=== PATIENT | male | born 1965 | race Hispanic/Latino ===

== ENCOUNTER 2020-02-23 06:31 | Emergency (ER) | payer SELFPAY ==
[~2020-02-23] VITALS: Ht 177.8 cm; Wt 113.4 kg
[~2020-02-23 06:31] MED LIST: LISINOPRIL40 MG PO; MELOXICAM15 MG PO; ULTRAM 50MG50 MG PO
--- NOTE | 2020-02-23 07:16 | Emergency Department Note ---
History of Present Illnes History of Present Illness Chief Complaint: COVID PUI History of Present Illness This is a 54 year old male . Historian: Patient, Family Member Arrival Mode: Car Cardiovascular Physician Assistant Required: Yes Onset (how long ago): day(s) Duration (how long): day(s) Timing of current episode: intermittent Progression: unchanged Chronicity: new Associated symptoms: Reports fever/chills, Reports malaise Past Medical/Family History Physician Review I have reviewed the patient's past medical and family history. Any updates have been documented here. Past Medical History Recent Fever: Yes Clinical Suspicion of Infectio: Yes New/Unexplained Change in Ment: No Past Medical History: Hypertension Other Surgery: RIGHT SHOULDER Social History Smoking Cessation: Former smoker Counseling Performed: No Alcohol Use: None Any Illegal Drug Use: No Physically hurt or threatened: No Other Any Pre-Existing Lines (PICC,: No Review of Systems Review of Systems Constitutional: Reports as per HPI, Reports fever EENTM: Reports no symptoms Cardiovascular: Reports no symptoms Respiratory: Reports as per HPI, Reports cough Gastrointestinal: Reports no symptoms Genitourinary: Reports no symptoms Musculoskeletal: Reports no symptoms Integumentary: Reports no symptoms Neurological: Reports no symptoms Psychological: Reports no symptoms Endocrine: Reports no symptoms Hematological/Lymphatic: Reports no symptoms Physical Exam Related Data Allergies: Coded Allergies: No Known Allergies (Unverified , 09/17/14) Triage Vital Signs Vital Signs Date Time Temp Pulse Resp B/P (MAP) Pulse Ox O2 Delivery O2 Flow Rate FiO2 02/23/20 06:49 99.8 90 18 130/79 98 Room Air Vital signs reviewed: Yes Physical Exam CONSTITUTIONAL Constitutional: Present well-developed, Present well-nourished HENT HENT: Present normocephalic, Present atraumatic, Present oropharynx clear/moist, Present nose normal HENT L/R: Present left ext ear normal, Present right ext ear normal EYES Eyes: Reports PERRL, Reports conjunctivae normal NECK Neck: Present ROM normal PULMONARY Pulmonary: Present effort normal, Present breath sounds normal CARDIOVASCULAR Cardiovascular: Present regular rhythm, Present heart sounds normal, Present capillary refill normal, Present normal rate GASTROINTESTINAL Abdominal: Present soft, Present nontender, Present bowel sounds normal GENITOURINARY Genitourinary: Present exam deferred SKIN Skin: Present warm, Present dry MUSCULOSKELETAL Musculoskeletal: Present ROM normal NEUROLOGICAL Neurological: Present alert, Present oriented x 3, Present no gross motor or sensory deficits PSYCHOLOGICAL Psychological: Present mood/affect normal, Present judgement normal Assessment & Plan Medical Decision Making MDM 43-year-old well-appearing male arrives to the ED with complaints of cough fever loss of taste and smell. Patient is clinically presenting with signs and sympto ms consistent with Covid 19. Patient informed he is positive until proven otherwise. Patient's oxygen saturation remained 99% even on exertion, no evidence of tachypnea or dyspnea noted in the ED. Spoke present length about the importance of sleeping on his stomach and rotating from side to side. Z-Uriel and Decadron given, signs and symptoms for return discussed. In the light of the Covid pandemic, disaster medicine care was given- patient understands why he was not tested for Covid 19 in the ED, no indications for a chest x-ray at this time given normal oxygen saturation and respiratory status. Pt understands he is at high risk of morbidity and mortality given his age and co-morbidiites. Pt understands he is welcome to return to the ED at anytime for worsening symptoms. Assessment & Plan Final Impression: (1) COVID-19 Depart Disposition: HOME, SELF-CARE Last Vital Signs Date Time Temp Pulse Resp B/P (MAP) Pulse Ox O2 Delivery O2 Flow Rate FiO2 02/23/20 06:49 99.8 90 18 130/79 98 Room Air Home Meds Reported Medications Lisinopril (LISINOPRIL) 40 Mg Tablet, 40 MG PO BID 09/17/14 Tramadol Hcl* (ULTRAM 50MG*) 50 Mg Tab, 50 MG PO PRN, TAB 09/17/14 Meloxicam (MELOXICAM) 15 Mg Tablet, 15 MG PO DAILY 09/17/14 BREN ROGERS DO Feb 23, 2020 07:16
== END 2020-02-23 07:15 | disposition home or self-care (01) ==
LOC: ER 07:14
DX: U07.1 COVID-19 (principal); R50.9 Fever, unspecified; R05 Cough; R53.81 Other malaise; I10 Essential (primary) hypertension
CPT/HCPCS: 99282